=== PATIENT | female | born 1980 | race Caucasian/White ===

== ENCOUNTER 2019-07-19 16:36 | Emergency (ER) | payer OTHER, SELFPAY ==
[2019-07-19 17:00] VITALS: BP 128/91; PULSE 80; RESP 20; TEMP 36.9; O2SAT 99
--- NOTE | 2019-07-19 17:37 | ED.GENADULT ---
HPI - General Adult General Chief complaint: Upper Respiratory Infection Stated complaint: Sore throat Time Seen by Provider: 07/19/19 17:38 Source: patient and RN notes reviewed Mode of arrival: ambulatory Limitations: no limitations History of Present Illness HPI narrative: 39-year-old female presents with complaints of body aches, fever, and sore throat for 3 days. Nyquil (last on 07/18/19), Tylenol (last today at 15:00), and Dayquil (last this morning at 11:00) with little relief. High fevers, as high as 101.2F, orally with chills and sweats. No drooling, neck or throat swelling. Pain is bilateral. Hurts to swallow. Rhinorrhea and nasal congestion. No cough or chest congestion. No voice change. No nausea, vomiting, or abdominal pain. Tolerating liquids well. Denies chills, dyspnea, difficulty swallowing, jaw pain, dental pain, facial pain, foreign body sensation, and rash. Remains active. Some parts of this dictation were generated by voice recognition software and may contain typographical and/or grammatical inaccuracies. Related Data Home Medications Medication Instructions Recorded Confirmed bupropion HCl 300 mg PO QAM 07/19/19 07/19/19 buspirone 10 mg PO BID 07/19/19 07/19/19 Allergies Allergy/AdvReac Type Severity Reaction Status Date / Time latex Allergy Mild RASH Verified 07/19/19 17:23 cephalexin AdvReac Intermediate CANKER Verified 07/19/19 17:23 SORES Review of Systems Review of Systems: Narrative: CONSTITUTIONAL: Complains of fever, chills, sweats. EYES: Denies visual changes, redness, discharge. ENT: Denies otalgia. Complains of sore throat, rhinorrhea, congestion. CARDIOVASCULAR: Denies chest pain, palpitations, edema. RESPIRATORY: Denies dyspnea, wheezing, cough. GASTROINTESTINAL: Denies abdominal pain, nausea, vomiting, diarrhea. GENITOURINARY: Denies dysuria, hematuria, abnormal discharge SKIN: Denies rash or itching. MUSCULOSKELETAL: Denies acute back pain, joint pain, or myalgia. NEUROLOGIC: Denies numbness or focal weakness. PSYCHIATRIC: Denies anxiety or depression All systems reviewed & are unremarkable except as noted in HPI and below [facility] Past Medical History Medical History (Updated 07/24/19 @ 17:26 by PEDRO LUIS Mai) Anxiety Bipolar disorder Coloboma of eye Depression Eczema Foot fracture, right Seasonal allergies Sinusitis Strep tonsillitis Surgical History Surgical History (Updated 07/24/19 @ 17:22 by PEDRO LUIS Mai) History of cataract surgery History of gastric bypass History of myringotomy Comments At time of signature, agree with nurse past medical, surgical, social, and family history. There is no relevant family history pertinent to the presenting complaint. Exam Narrative: Exam Narrative: GENERAL: This is a well-nourished, well-developed patient, in no apparent distress. Speaks in full sentences without deficits and ambulates with steady gait without dyspnea. HEAD: normocephalic, atraumatic. EYES: PERRL. Sclera clear/white. Vision is grossly intact. EARS: External ears normal, auditory canals clear and without drainage, TMs normal without perforation. Hearing grossly intact. NOSE: External nose normal with no obvious nasal discharge, nares with moderate redness and enlarge turbinates, no rhinorrhea. Mouth: moist mucous membranes. Geographic tongue. THROAT: Mucous membranes moist, posterior pharynx with PND, moderate erythema, mild exudate to LT tonsil only, 1+ tonsils, no drainage, no concern for Peritonsillar abscess. No drooling, trismus, or neck swelling. NECK: Neck supple, non-tender without lymphadenopathy, masses or thyromegaly. CARDIOVASCULAR: Regular rate and rhythm without murmurs, gallops, or rubs. RESPIRATORY: Clear to auscultation. Breath sounds equal bilaterally. No wheezes, rales, or rhonchi. GASTROINTESTINAL: Abdomen soft, non-tender, nondistended. Bowel sounds are active. No hepato-splenomegaly, or palpable roni
== END 2019-07-19 17:50 | disposition home or self-care (01) ==
PROVIDERS: Emergency Provider Nurse Practitioner Family; PCP Internal Medicine
DX: J02.9 Acute pharyngitis, unspecified (principal)
CPT/HCPCS: 87880; 99213; G0463

== ENCOUNTER 2024-03-03 08:57 | Emergency (ER) | payer OTHER, SELFPAY ==
[2024-03-03 09:05] VITALS: BP 139/72; PULSE 76; RESP 16; TEMP 37.1; O2SAT 100
--- NOTE | 2024-03-03 09:06 | ED.URI ---
HPI - URI/Sore Throat General Chief Complaint: Upper Respiratory Infection Stated Complaint: Sinus Pressure/Ear Pain Time Seen by Provider: 03/03/24 09:07 Source: patient and RN notes reviewed Mode of arrival: ambulatory Limitations: no limitations History of Present Illness HPI Narrative: 44-year-old female presents with concern for 3 day history of sinus congestion, bilateral ear pain for 3 days. She reports some runny nose and she felt feverish. Reports she is taking Sudafed without relief. MD elicited complaint: cough and nasal congestion Related Data Home Medications Medication Instructions Recorded Confirmed bupropion HCl 300 mg 24 hr tablet, 300 mg PO QAM 07/19/19 07/19/19 extended release buspirone 10 mg tablet 10 mg PO BID 07/19/19 07/19/19 Allergies Allergy/AdvReac Type Severity Reaction Status Date / Time latex Allergy Mild RASH Verified 07/19/19 17:23 cephalexin AdvReac Intermediate CANKER Verified 07/19/19 17:23 SORES Review of Systems Review of Systems: CONSTITUTIONAL: Reports malaise, fever. EYES: Denies visual changes, redness, or discharge. ENT: Reports rhinorrhea, congestion, sinus pain, otalgia CARDIOVASCULAR: Denies chest pain, palpitations, or edema. RESPIRATORY: Reports cough. Denies dyspnea. GASTROINTESTINAL: Denies abdominal pain, nausea, vomiting, diarrhea SKIN: Denies rash or itching. MUSCULOSKELETAL: Denies myalgia. NEUROLOGIC: Denies headache. All systems reviewed & are unremarkable except as noted in HPI and below PMFSH Past Medical History Medical History (Updated 03/03/24 @ 09:19 by Sophy Villar NP) Anxiety Bipolar disorder Coloboma of eye Depression Eczema Foot fracture, right Seasonal allergies Sinusitis Strep tonsillitis Surgical History Surgical History (Updated 07/24/19 @ 17:22 by PEDRO LUIS Mai) History of cataract surgery History of gastric bypass History of myringotomy Comments At time of signature, agree with nursing past medical, surgical, social and family history. There is no relevant family history pertinent to the presenting complaint Exam Narrative: GENERAL: Well-appearing, well-nourished, and in no acute distress. HEAD: Normocephalic EYES: PERRLA, conjunctivae clear ENT: Nares clear. Mucous membranes moist. TM erythematous bilaterally; no tragal tenderness. Oropharynx not erythematous without lesions. Tonsils not enlarged and without exudate, no drooling, no hoarseness, no trismus, uvula midline. NECK: Supple. No lymphadenopathy CHEST: Clear to auscultation, breath sounds equal. No wheezing, rhonchi, rales, or stridor. No respiratory distress, speaks in full sentences. HEART: Regular rate and rhythm. No murmur heard. SKIN: Warm, dry, no rash. NEURO: Alert and oriented x3. PSYCH: Normal mood and affect Course Course Emergency Course: Patient is aware of diagnosis, understands and agrees to treatment plan. Anticipatory guidance given. Patient agrees to follow-up as directed and is aware of reasons to seek care at the emergency department. Portions of this record may have been created with voice recognition software Level of Care: Express Care Visit Vital Signs Vital signs: Vital Signs Temperature 98.8 F 03/03/24 09:05 Pulse Rate 76 03/03/24 09:05 Respiratory Rate 16 03/03/24 09:05 Blood Pressure 139/72 03/03/24 09:05 Pulse Oximetry 100 03/03/24 09:05 Oxygen Delivery Room Air 03/03/24 09:05 Temperature 98.8 F 03/03/24 09:05 Pulse Rate 76 03/03/24 09:05 Respiratory Rate 16 03/03/24 09:05 Blood Pressure 139/72 03/03/24 09:05 Pulse Oximetry 100 03/03/24 09:05 Oxygen Delivery Room Air 03/03/24 09:05 Reviewed. MDM - URI/Sore Throat MDM Narrative Medical decision making narrative: Differential diagnosis considered: Cordon virus, strep pharyngitis, allergic rhinitis, upper respiratory tract infection, sinusitis, rhinosinusitis, nasopharyngitis. viral pharyngitis, o
== END 2024-03-03 09:27 | disposition home or self-care (01) ==
PROVIDERS: Emergency Provider Nurse Practitioner; PCP Family Medicine
DX: H66.93 Otitis media, unspecified, bilateral (principal); J06.9 Acute upper respiratory infection, unspecified; F31.9 Bipolar disorder, unspecified
CPT/HCPCS: 99213; G0463

== ENCOUNTER 2024-04-29 08:28 | Emergency (ER) | payer OTHER, SELFPAY ==
--- NOTE | ~2024-04-29 | XR_ITS ---
EXAMINATION: XR foot RT min 3V DATE: 04/29/2024 09:11 INDICATION: Right foot pain and bruising. TECHNIQUE: 4 views of right foot were obtained. COMPARISON: None. FINDINGS: There is mild hallux valgus. There is a healed fracture involving head and neck of fifth me tatarsal with callus. There is mild osteoarthritis of talonavicular joint. There are enthesophytes at the posterior and plantar aspects of calcaneal tuberosity. IMPRESSION: 1. Mild hallux valgus. 2. Mild osteoarthritis of talonavicular joint. Reviewed, dictated and finalized at location [facility] [employer]
[2024-04-29 08:38] VITALS: BP 132/92; PULSE 90; RESP 20; TEMP 36.2; O2SAT 100
--- NOTE | 2024-04-29 08:48 | ED.LOWEXIN ---
HPI - Extremity Injury (Lower) General Chief Complaint: Extremity Injury, Lower Stated Complaint: Rt Foot Pain Source: patient Mode of arrival: ambulatory Limitations: no limitations History of Present Illness HPI Narrative: 44 y/o female presented for c/o right foot pain x5 days. States she injured the foot when she fell off the toilet after falling asleep due to medication side effect of Xywav. Reports pain is mostly to the outer aspect of the foot and the little toe has decreased range of motion. Says she had bruising and swelling which is improving. Has taken tylenol. Rates pain 8/10 at worst. Ambulating without difficulty. Related Data Home Medications Medication Instructions Recorded Confirmed dextroamphetamine-amphetamine 20 04/29/24 04/29/24 mg tablet fluoxetine 20 mg capsule 20 mg 04/29/24 hydrocodone 5 mg-acetaminophen 325 tablet 04/29/24 mg tablet hydroxyzine HCl 25 mg tablet See Rx Instructions .Route 04/29/24 04/29/24 .COMPLEX PRN Anxiety lamotrigine 100 mg tablet mg 04/29/24 Allergies Allergy/AdvReac Type Severity Reaction Status Date / Time latex Allergy Mild RASH Verified 04/29/24 09:02 cephalexin AdvReac Intermediate CANKER Verified 04/29/24 09:02 SORES Review of Systems Review of Systems: CONSTITUTIONAL: Denies body aches, fever, chills CARDIOVASCULAR: Denies chest pain, palpitations, or edema. RESPIRATORY: Denies cough or dyspnea. SKIN: Denies wounds. MUSCULOSKELETAL: reports right foot pain, swelling and bruising. NEUROLOGIC: Denies numbness, tingling, or weakness. All systems reviewed & are unremarkable except as noted in HPI and below PMFSH Past Medical History Medical History Anxiety Bipolar disorder Coloboma of eye Depression Eczema Foot fracture, right Seasonal allergies Sinusitis Strep tonsillitis Surgical History Surgical History History of cataract surgery History of gastric bypass History of myringotomy Comments At time of signature, I have reviewed and agree with nursing past medical, surgical, social and family history unless otherwise noted. Please see nursing chart for further information. There is no relevant family history pertinent to the presenting complaint Exam Narrative: GENERAL: Well-appearing CHEST: Speaks in full sentences. No respiratory distress. HEART: Regular rate and rhythm. Normal and equal peripheral pulses. EXTREMITIES: right foot has normal strength and sensation, slightly limited range of motion of 5th toe due to pain with movement. mild swelling and ecchymosis to lateral heel and midfoot, bruising over 3-4th MTPs; tender with palpation to the 5th metatarsal area. Full ROM ankle. No open wounds, or obvious deformity; alignment normal, pulse palpable and equal bilaterally, skin warm, dry, pink. Capillary refill less than 3 seconds. SKIN: Warm, dry NEURO: Alert and oriented x3. PSYCH: Normal mood and affect Course Course Emergency Course: Patient is aware of diagnosis, understands and agrees to treatment plan. Anticipatory guidance given. Patient agrees to follow-up as directed and is aware of reasons to seek care at the emergency department. Portions of this record may have been created with voice recognition software Level of Care: Express Care Visit Vital Signs Vital signs: Vital Signs Temperature 97.1 F L 04/29/24 08:38 Pulse Rate 90 04/29/24 08:38 Respiratory Rate 20 04/29/24 08:38 Blood Pressure 132/92 H 04/29/24 08:38 Pulse Oximetry 100 04/29/24 08:38 Oxygen Delivery Room Air 04/29/24 08:38 Temperature 97.1 F L 04/29/24 08:38 Pulse Rate 90 04/29/24 08:38 Respiratory Rate 20 04/29/24 08:38 Blood Pressure 132/92 H 04/29/24 08:38 Pulse Oximetry 100 04/29/24 08:38 Oxygen Delivery Room Air 04/29/24 08:38 Reviewed MDM - Extremity Injury (Lower) MDM Narrative Medical decision making narrative: Discussed physical exam findings and x-ray. LETY applied. Advised supportive measures and signs/symptoms to go to the ER. Pt is appropriate for outpt treatment and f/u. Differential Diagnosis Differential diagnosis: Likely puncture wound of foot, fracture of toe and ankle fracture Imaging Data Radiologist's impression: Patient: Viky Zimmerman : 1980 MR#: [id number] Age: 44 Acct:[id number] Loc: [facility] ADM Date: 04/29/24Attending Dr: Ordering Physician: Sabra Tariq APRN Date of Service: 04/29/24 Procedure(s): XR foot RT min 3V Accession Number(s): [id number] cc: Keesha, Benji Urbina MD; Sabra Tariq APRN~ EXAMINATION: XR foot RT min 3V DATE: 04/29/2024 09:11 INDICATION: Right foot pain and bruising. TECHNIQUE: 4 views of right foot were obtained. COMPARISON: None. FINDINGS: There is mild hallux valgus. There is a healed fracture involving head and neck of fifth metatarsal with callus. There is mild osteoarthritis of talonavicular joint. There are enthesophytes at the posterior and plantar aspects of calcaneal tuberosity. IMPRESSION: 1. Mild hallux valgus. 2. Mild osteoarthritis of talonavicular joint. Discharge Plan Discharge Clinical Impression: Contusion of foot Patient Disposition: Home, Self-Care Condition: Stable Instructions: Foot Contusion (ED) Additional Instructions: Rest and elevate the right leg; bear weight as tolerated Apply ice 15-20 minute intervals several times a day Keep it wrapped with LETY or use a soft ankle splint Motrin 800mg every 8 hours, alternate with Tylenol 1000mg every 8 hours as needed Follow up with your primary care provider in 1 week Go to the ER for worsening symptoms or concerns Prescriptions: No Action hydrocodone-acetaminophen 5-325 mg tablet dextroamphetamine-amphetamine 20 mg tablet hydroxyzine HCl 25 mg tablet See Rx Instructions .ROUTE .COMPLEX PRN (Reason: Anxiety) Rx Instructions: as prescribed fluoxetine 20 mg capsule 20 mg lamotrigine 100 mg tablet Follow-up/Referrals: Keesha,Benji Urbina M.D. [Primary Care Provider] - Time of Disposition: 09:38
== END 2024-04-29 09:40 | disposition home or self-care (01) ==
PROVIDERS: Emergency Provider Nurse Practitioner Family; PCP Family Medicine
DX: S90.31XA Contusion of right foot, initial encounter (principal); W18.11XA Fall from or off toilet without subsequent striking against object, initial encounter; F41.9 Anxiety disorder, unspecified; Z98.84 Bariatric surgery status
CPT/HCPCS: 73630; 99213; G0463